=== PATIENT | female | born 2005 | race African-American/Black ===

== ENCOUNTER 2025-03-13 19:36 | Inpatient (IN) | payer MEDICAID ==
[2025-03-13 21:04] LABS: BASOPHILS ABSOLUTE AUTO 0.06 K/uL (0.00-0.20); BASOPHILS PERCENT AUTO 0.4 % (0.0-1.0); EOSINOPHILS ABSOLUTE AUTO 0.14 K/uL (0.00-0.45); EOSINOPHILS PERCENT AUTO 0.9 % (0.0-6.0); IMMATURE GRAN ABSOLUTE AUTO 0.09 K/uL (0.00-0.05); IMMATURE GRAN PERCENT AUTO 0.6 % (0.0-0.4); LYMPHOCYTES ABSOLUTE AUTO 2.89 K/uL (1.00-4.80); LYMPHOCYTES PERCENT AUTO 19.3 % (24.0-44.0); MEAN PLATELET VOLUME 11.2 fL (9.4-12.3); MONOCYTES ABSOLUTE AUTO 1.30 K/uL (0.00-0.80); MONOCYTES PERCENT AUTO 8.7 % (0.0-8.0); NEUTROPHILS ABSOLUTE AUTO 10.50 K/uL (1.80-7.70); NEUTROPHILS PERCENT AUTO 70.1 % (41.0-71.0); NRBC ABSOLUTE 0.00 K/uL (0.00-0.02); NRBC PERCENT 0.0 /100WBC (0.0-0.2); PLATELET COUNT,PLT 193 K/uL (150-400); RED BLOOD CELL COUNT 4.27 M/uL (4.10-5.30); WHITE BLOOD CELL COUNT,WBC 14.98 K/uL (3.9-11.3)
[2025-03-13 21:04] LABS: APPEARANCE,URINE CLEAR; GLUCOSE,URINE NEGATIVE (NEGATIVE); OCCULT BLOOD,URINE NEGATIVE (NEGATIVE)
[2025-03-13 21:26] LABS: A/G RATIO 0.7 (0.9-1.6); ALANINE AMINOTRANSFERASE,ALT 18.0 IU/L (14-63); ASPARTATE AMNIOTRANSFERASE,AST 14.0 IU/L (15-37); BILIRUBIN TOTAL 0.2 mg/dL (0.2-1.0); BLOOD UREA NITROGEN,BUN 7.0 mg/dL (7.0-18.0); CARBON DIOXIDE,CO2 23.2 mmol/L (21.0-32.0); CHLORIDE,CL 103.0 mmol/L (98-107); CREATININE 0.7 mg/dL (0.6-1.0); EST CRCL DRUG DOSING (CG) 111.15 mL/min; GLUCOSE RANDOM 98.0 mg/dL (74-106); POTASSIUM,K 3.9 mmol/L (3.5-5.1); PROTEIN TOTAL,TP 7.1 g/dL (6.4-8.2); SODIUM,NA 137.0 mmol/L (136-145)
[2025-03-13 21:34] LABS: ESTIMATED GFR 125.0 mL/min (>60)
[2025-03-13 22:30] LABS: CANDIDA DNA PROBE NEGATIVE (NEGATIVE); GARDNERELLA DNA PROBE NEGATIVE (NEGATIVE); TRICHOMONAS DNA PROBE NEGATIVE (NEGATIVE)
[2025-03-14] MEDS ORDERED: Terbutaline 1 MG/ML SDV SUBCUT PRN (01:14)
[2025-03-14] MEDS ORDERED: Carboprost Tromethamine 250 MCG/1 mL Vial IM PRN (01:14)
[2025-03-14] MEDS ORDERED: Water For Irrigation,Sterile 1,000 ML Container IRR PRN (01:14)
[2025-03-14] MEDS ORDERED: Sodium Chloride 0.9% 2.5 ML Syringe FLUSH PRN (01:14)
[2025-03-14] MEDS ORDERED: Sodium Chloride 0.9% 10 ML Syringe FLUSH PRN (01:14)
[2025-03-14] MEDS ORDERED: Oxytocin/0.9 % Sodium Chloride 30 UNIT/500 ML BAG IV SCH (01:15)
[2025-03-14 01:48] LABS: AMPHETAMINES SCREEN, URINE NEGATIVE (CUTOFF=500); BUPRENORPHINE SCREEN,URINE NEGATIVE (CUTOFF=10); METHADONE SCREEN, URINE NEGATIVE (CUTOFF=200); METHAMPHETAMINES SCREEN, URINE NEGATIVE (CUTOFF=500); OXYCODONE SCREEN,URINE NEGATIVE (CUT0FF=100); PCP SCREEN,URINE NEGATIVE (CUTOFF=25); THC SCREEN,URINE 20 NG/ML NEGATIVE (CUTOFF=50)
[2025-03-14] MEDS: Misoprostol 25 MCG (1/4 of 100 MCG) Tab PO PRN (01:50)
[2025-03-14] MEDS: Lactated Ringers 1,000 ML IV SCH (02:03)
[2025-03-14 03:18] LABS: HEPATITIS C AB# 0.07 INDEX (<0.8)
[2025-03-14] MEDS ORDERED: ePHEDrine 50 MG/ML SDV IVPUSH PRN (07:43)
[2025-03-14] MEDS ORDERED: dexmedeTOMIDine HCl 200 MCG/2 ML SDV EPIDUR SCH (07:45)
[2025-03-14] MEDS: Butorphanol 1 MG/ML SDV IVPUSH PRN (07:53)
[2025-03-14] MEDS: cefTRIAXone 1 GM in Water For Injection, Sterile 10 ML IVPUSH SCH (09:20)
[2025-03-14] MEDS: Oxytocin/0.9 % Sodium Chloride 30 UNIT/500 ML BAG IV SCH ×2 (10:30→19:25)
[2025-03-14] MEDS: Ropivacaine HCl/PF 400 MG in Premix Bag 1 BAG EPIDUR SCH (13:10)
[2025-03-14] MEDS: Ondansetron 4 MG/2 ML SDV IVPUSH PRN (16:03)
[2025-03-15] MEDS ORDERED: Aluminum Hydroxide/Magnesium Hydroxide/Simethicone Susp 30 ML Cup PO PRN (00:24)
[2025-03-15 00:38] LABS: PH,UMBILICAL ARTERIAL 7.19 (7.18-7.38); PH,UMBILICAL VENOUS 7.26 (7.25-7.45)
[2025-03-15] MEDS: Lanolin 100% Cream 7 GM Tube TOP PRN (02:53)
[2025-03-15] MEDS: Witch Hazel Medicated Pads 40/Jar TOP PRN (02:54)
[2025-03-15] MEDS: Benzocaine/Menthol 20%-0.5% Spray 78 GM Cannister TOP PRN (02:54)
[2025-03-15 05:43] LABS: BASOPHILS ABSOLUTE AUTO 0.05 K/uL (0.00-0.20); BASOPHILS PERCENT AUTO 0.3 % (0.0-1.0); EOSINOPHILS ABSOLUTE AUTO 0.06 K/uL (0.00-0.45); EOSINOPHILS PERCENT AUTO 0.4 % (0.0-6.0); IMMATURE GRAN ABSOLUTE AUTO 0.11 K/uL (0.00-0.05); IMMATURE GRAN PERCENT AUTO 0.7 % (0.0-0.4); LYMPHOCYTES ABSOLUTE AUTO 2.25 K/uL (1.00-4.80); LYMPHOCYTES PERCENT AUTO 14.0 % (24.0-44.0); MEAN PLATELET VOLUME 11.5 fL (9.4-12.3); MONOCYTES ABSOLUTE AUTO 1.42 K/uL (0.00-0.80); MONOCYTES PERCENT AUTO 8.8 % (0.0-8.0); NEUTROPHILS ABSOLUTE AUTO 12.20 K/uL (1.80-7.70); NEUTROPHILS PERCENT AUTO 75.8 % (41.0-71.0); NRBC ABSOLUTE 0.00 K/uL (0.00-0.02); NRBC PERCENT 0.0 /100WBC (0.0-0.2); PLATELET COUNT,PLT 183 K/uL (150-400); RED BLOOD CELL COUNT 3.96 M/uL (4.10-5.30); WHITE BLOOD CELL COUNT,WBC 16.09 K/uL (3.9-11.3)
[2025-03-15] MEDS ORDERED: Ketorolac 30 MG/ML SDV IVPUSH SCH (13:30)
[2025-03-15] MEDS: Ketorolac 30 MG/ML SDV IVPUSH SCH (16:53)
[2025-03-15] MEDS: Nitrofurantoin Monohydrate/Macrocrystalline 100 MG Cap PO SCH (21:14)
== END 2025-03-17 14:15 | disposition home or self-care (01) | DRG 805 ==
LOC: MW.OBCHECK 19:36 → MW.OB 03-14 01:14 → OBSVTOIN 03-14 23:54 → MW.OB 03-15 02:50
PROVIDERS: ADMIT Obstetrics & Gynecology; ATTEND Obstetrics & Gynecology
PROC: 10E0XZZ Delivery of Products of Conception, External Approach (ICD-10-PCS; principal; 2025-03-14)
PROC: 3E0R3BZ Introduction of Anesthetic Agent into Spinal Canal, Percutaneous Approach (ICD-10-PCS; 2025-03-14)
PROC: 0HQ9XZZ Repair Perineum Skin, External Approach (ICD-10-PCS; 2025-03-14)
DX: O42.013 Preterm premature rupture of membranes, onset of labor within 24 hours of rupture, third trimester (principal); O60.13X0 Preterm labor second trimester with preterm delivery third trimester, not applicable or unspecified; Z37.0 Single live birth; N39.0 Urinary tract infection, site not specified; O23.43 Unspecified infection of urinary tract in pregnancy, third trimester; O98.82 Other maternal infectious and parasitic diseases complicating childbirth; O99.344 Other mental disorders complicating childbirth; Z3A.36 36 weeks gestation of pregnancy; O99.02 Anemia complicating childbirth; Z98.890 Other specified postprocedural states; F17.200 Nicotine dependence, unspecified, uncomplicated; Z79.899 Other long term (current) drug therapy; O70.0 First degree perineal laceration during delivery
CPT/HCPCS: 01967; 36415; 51702; 59025; 59409; 76805; 76805-26; 80053; 80305; 81003; 82803; 84112; 85025; 86592; 86762; 86803; 86850; 86900; 86901; 87340; 87389; 87480; 87510; 87660; A9270-GY; J0290; J0595; J0696; J1885; J2405; J2590; J2795; J7120